=== PATIENT | female | born 1990 | race Caucasian/White ===

== ENCOUNTER 2019-04-16 01:35 | Inpatient (IN) ==
[2019-04-16] MEDS ORDERED: ONDANSETRON 4 MG/2 ML VIAL IV PRN (01:52)
[2019-04-16] MEDS ORDERED: MEPERIDINE 50 MG/1 ML VIAL IV PRN (01:52)
[2019-04-16] MEDS ORDERED: LACTATED RINGERS 500 ML IV PRN (01:52)
[2019-04-16] MEDS ORDERED: BUTORPHANOL 2 MG/ML VIAL IV PRN (01:52)
[2019-04-16] MEDS: LACTATED RINGERS 1,000 ML IV SCH ×2 (02:01→04:02)
[2019-04-16 02:05] LABS: Basophils % 0.3 % (0.0-0.8); Eosinophils # 0.1 10*3/uL (0.0-0.87); Eosinophils % 0.9 % (0.00-10.9); Hematocrit 36.1 VOL% (35.7-47.0); Hemoglobin 11.1 GM/DL (12.0-16.0); Immature Granulocytes % 0.5 %; Immature Granulocytes Absolute 0.04 #; Lymphocytes # 2.1 10*3/uL (1.4-4.0); Lymphocytes % 24.5 % (21.3-54.2); Mean Corpuscular HGB Conc 30.7 GM/DL (32-36); Mean Corpuscular Volume 81.9 FL (87-102); Mean Platelet Volume 11.7 FL (9.6-12.0); Monocytes % 8.1 % (1.7-12.7); Neutrophils % 65.7 % (38.7-73.9); Platelet Count 173 T/CUMM (130-400); Red Blood Count 4.41 MC/CUMM (3.8-5.5); Red Cell Distribution Width 16.6 % (9.3-17.3); White Blood Count 8.7 T/CUMM (4-12)
[2019-04-16] MEDS ORDERED: CITRIC ACID/SODIUM CITRATE 30 ML UDCUP PO ONE (02:07)
[2019-04-16] MEDS ORDERED: FAMOTIDINE 20 MG/2 ML VIAL IV ONE (02:07)
[2019-04-16] MEDS ORDERED: ceFAZolin 3,000 MG in SYRINGE 1 EACH IV ONE (02:07)
[2019-04-16 03:03] LABS: Alanine Aminotransferase 9 U/L (13-56); Albumin 2.4 G/DL (3.4-5.0); Alkaline Phosphatase 118 U/L (45-117); Aspartate Amino Transferase 14 U/L (0-37); Bilirubin,Total < 0.39 MG/DL (0.2-1.0); Blood Urea Nitrogen 6 MG/DL (7-18); Calcium 9.6 MG/DL (8.5-10.1); Glucose 124 MG/DL (74-106); Osmolality,Calculated 281.1 MOS/KG (273-304); Total Protein 5.8 G/DL (6.4-8.3)
[2019-04-16] MEDS ORDERED: OXYTOCIN/LR 20 UNIT/1,000 ML BAG IV ONE (05:48)
[2019-04-16] MEDS ORDERED: ROPIVACAINE 0.5% 30 ML VIAL ONE (06:37)
[2019-04-16] MEDS ORDERED: DEXAMETHASONE 4 MG/1 ML VIAL ONE (06:38)
[2019-04-16] MEDS ORDERED: TRANEXAMIC ACID 1,000 MG/10 ML VIAL ONE (06:54)
[2019-04-16] MEDS ORDERED: OXYTOCIN/LR 0 UNIT/0 ML BAG IV ONE (06:54)
[2019-04-16] MEDS ORDERED: miSOPROStol 200 MCG TABLET ONE (06:54)
[2019-04-16] MEDS ORDERED: CARBOPROST TROMETHAMINE 250 MCG/ML AMP IM ONE ×2 (06:55→06:56)
[2019-04-16] MEDS ORDERED: METHYLERGONOVINE 0.2 MG/1 ML AMP ONE (06:55)
[2019-04-16 08:26] LABS: Hematocrit 34.4 VOL% (35.7-47.0); Hemoglobin 10.3 GM/DL (12.0-16.0)
[2019-04-16 08:34] LABS: Amorphous Crystals,Urine Few /HPF (Few); Apearance,Urine Slightly Hazy (Clear); Bacteria,Urine Occasional /HPF (Few); Bilirubin,Urine Negative (Negative); Blood, Urine Negative (Negative); Glucose,Urine (UA) Negative (Negative); Ketones,Urine Negative (Negative); Mucus,Urine Occasional /LPF (Occasional); Nitrite,Urine Negative (Negative); Protein,Urine Negative; Squamous Epithelial Cell,Urine Occasional /HPF (0-10); Urine Color Yellow (Yellow); Urine Urobilinogen < 2.0 EU/DL (0.2-1.0)
[2019-04-16] MEDS ORDERED: fentaNYL 100 MCG/2 ML VIAL ONE (09:02)
[2019-04-16] MEDS ORDERED: PHENYLEPHRINE 1 MG/10 ML SYRINGE IV ONE (09:02)
[2019-04-16] MEDS ORDERED: MORPHINE 10 MG/10 ML VIAL ONE (09:02)
[2019-04-16] MEDS ORDERED: BUPIVACAINE SPINAL 0.75% 2 ML AMP SPINAL ONE (09:03)
[2019-04-16] MEDS: ceFAZolin 1,000 MG in SYRINGE 1 EACH IV SCH ×2 (15:08→23:30)
[2019-04-16] MEDS ORDERED: DOCUSATE SODIUM 100 MG CAPSULE PO SCH (21:00)
[2019-04-16] MEDS: IBUPROFEN 800 MG TABLET PO PRN (23:36)
[2019-04-17 04:01] LABS: Basophils % 0.4 % (0.0-0.8); Eosinophils # 0.1 10*3/uL (0.0-0.87); Eosinophils % 0.7 % (0.00-10.9); Hematocrit 27.4 VOL% (35.7-47.0); Hemoglobin 8.3 GM/DL (12.0-16.0); Immature Granulocytes % 0.5 %; Immature Granulocytes Absolute 0.05 #; Lymphocytes # 1.9 10*3/uL (1.4-4.0); Lymphocytes % 17.9 % (21.3-54.2); Mean Corpuscular HGB Conc 30.3 GM/DL (32-36); Mean Platelet Volume 11.7 FL (9.6-12.0); Monocytes % 7.9 % (1.7-12.7); Neutrophils % 72.6 % (38.7-73.9); Platelet Count 127 T/CUMM (130-400); Red Blood Count 3.26 MC/CUMM (3.8-5.5); Red Cell Distribution Width 17.1 % (9.3-17.3); White Blood Count 10.7 T/CUMM (4-12)
[2019-04-17] MEDS: MAGNESIUM HYDROXIDE SUSP 30 ML UDCUP PO PRN ×2 (08:15→21:50)
[2019-04-17] MEDS: DOCUSATE SODIUM 100 MG CAPSULE PO SCH ×2 (08:16→21:50)
[2019-04-17] MEDS: IBUPROFEN 800 MG TABLET PO PRN ×2 (08:16→16:32)
[2019-04-17] MEDS: SIMETHICONE CHEW 80 MG TABLET PO PRN (08:17)
[2019-04-17] MEDS: FERROUS SULFATE 325 MG TABLET PO SCH ×2 (08:17→21:50)
[2019-04-17] MEDS ORDERED: oxyCODONE/ACETAMINOPHEN 5-325 MG TABLET PO PRN (21:57)
[2019-04-18 07:16] VITALS: BP 129/74
[2019-04-18] MEDS: MAGNESIUM HYDROXIDE SUSP 30 ML UDCUP PO PRN (07:39)
[2019-04-18] MEDS: FERROUS SULFATE 325 MG TABLET PO SCH ×2 (07:40→12:09)
[2019-04-18] MEDS: IBUPROFEN 800 MG TABLET PO PRN (07:40)
[2019-04-18] MEDS: DOCUSATE SODIUM 100 MG CAPSULE PO SCH ×2 (07:40→12:09)
[2019-04-18] MEDS: SIMETHICONE CHEW 80 MG TABLET PO PRN (07:40)
== END 2019-04-18 12:00 | disposition home or self-care (01) | DRG 787 ==
LOC: N.LDOUT 01:35 → N.LD 01:38 → N.OB 12:33
PROVIDERS: ADMIT Obstetrics & Gynecology; ATTEND Obstetrics & Gynecology
PROC: LDCSECT (ICD-10-PCS; 2019-04-16 07:00)